=== PATIENT | male | born 1970 ===

== ENCOUNTER 2022-01-26 12:34 | Emergency (ER) | payer SELFPAY ==
[2022-01-26 13:06] VITALS: TEMP 98.1; BMI 25.8
[2022-01-26] MEDS ORDERED: MIDAZOLAM HCL 2 MG/2 ML SINGLE DOSE VIAL ONE ×2 (13:28→14:23)
[2022-01-26] MEDS ORDERED: KETAMINE HCL 200 MG/20 ML VIAL ONE (13:28)
[2022-01-26] MEDS ORDERED: PROPOFOL 1,000,000 MCG/100 ML VIAL ONE (13:28)
[2022-01-26] MEDS ORDERED: LIDOCAINE HCL 4% TOPICAL SOLN (50 ML/BOTTLE) TP ONE (13:32)
[2022-01-26] MEDS ORDERED: DEXAMETHASONE SOD PHOSPHATE 10 MG/1 ML VIAL ONE (13:35)
[2022-01-26] MEDS ORDERED: MIDAZOLAM HCL 2 MG/2 ML SINGLE DOSE VIAL IVPUSH ONE ×3 (13:42→14:23)
[2022-01-26] MEDS ORDERED: PIPERACILLIN/TAZOB 4.5 GM 4.5 GM/100 ML BAG IVPB ONE (13:42)
[2022-01-26] MEDS ORDERED: VANCOMYCIN/WATER FOR INJ (PEG) 1,000 MG/200 ML BAG IVPB ONE (13:42)
[2022-01-26] MEDS ORDERED: KETAMINE HCL 200 MG/20 ML VIAL IVPUSH ONE (13:42)
[2022-01-26] MEDS ORDERED: CLINDAMYCIN 600MG PREMIX IVPB 600 MG/50 ML BAG IVPB ONE (13:43)
[2022-01-26] MEDS ORDERED: VANCOMYCIN 1 GM/200 ML PREMIX BAG IVPB ONE (13:43)
[2022-01-26] MEDS ORDERED: PIPERACILLIN/TAZOB 4.5 GM 4.5 GM in DEXTROSE 5%-WATER 100 ML IVPB ONE (13:43)
[2022-01-26 14:08] LABS: VENOUS BASE EXCESS 0.8 mmol/L (-2-2); VENOUS O2 SATURATION 82.5 % (70-80); VENOUS PCO2 47.1 mmHg (38-52); VENOUS PH 7.372 (7.310-7.410)
[2022-01-26 14:10] LABS: HEMOGLOBIN 16.8 GM/dL (11.7-16.9); MCH 32.8 pg (25.7-33.7); MCHC 33.7 g/dl (32.0-35.9); MEAN CELL VOLUME 97.5 fl (80-96); MEAN PLT VOLUME 11.3 fl (7.5-11.1); PLATELET COUNT 177 10^3/uL (134-434); RBC 5.13 M/mm3 (4.00-5.60); RDW 13.8 % (11.9-15.9); WHITE BLOOD COUNT 21.3 K/mm3 (4.0-10.0)
[2022-01-26 14:16] LABS: INR 1.36 (0.83-1.09); PROTHROMBIN TIME (PATIENT) 15.7 SEC (9.7-13.0)
[2022-01-26 14:19] LABS: ACTIVATED PTT 30.4 SECONDS (25.2-36.5)
[2022-01-26] MEDS ORDERED: DEXAMETHASONE SOD PHOSPHATE 10 MG/1 ML VIAL IVPUSH ONE (14:23)
[2022-01-26] MEDS ORDERED: GLYCOPYRROLATE 1 MG/5 ML VIAL IVPB ONE (14:25)
[2022-01-26] MEDS ORDERED: PROPOFOL 1,000,000 MCG/100 ML VIAL IVPB SCH (14:30)
[2022-01-26 14:42] VITALS: RESP 24
[2022-01-26 14:44] LABS: CALCIUM 8.8 mg/dL (8.5-10.1)
[2022-01-26 14:45] LABS: ALBUMIN 2.4 g/dl (3.4-5.0); BLOOD UREA NITROGEN 54.7 mg/dL (7-18)
[2022-01-26 14:48] LABS: CREATININE 1.2 mg/dL (0.55-1.3)
[2022-01-26 14:49] VITALS: BP 146/95; PULSE 114
[2022-01-26 14:50] LABS: BILIRUBIN,TOTAL 2.3 mg/dL (0.2-1); LACTIC ACID 2.2 mmol/L (0.4-2.0); TOT PROT 6.8 g/dl (6.4-8.2)
[2022-01-26] MEDS ORDERED: hydrALAZINE HCL 20 MG/ML VIAL IVPUSH ONE (15:00)
[2022-01-26] MEDS ORDERED: LIDOCAINE HCL 4% TOPICAL SOLN (50 ML/BOTTLE) MM ONE (15:00)
[2022-01-26] MEDS ORDERED: hydrALAZINE HCL 20 MG/ML VIAL ONE (15:01)
[2022-01-26 15:22] LABS: ANISOCYTOSIS 0; HELMET CELLS 0; HOWELL-JOLLY BODIES 0; MACROCYTOSIS 0; OVALOCYTE 0; ROULEAU 0; SICKELED CELLS 0; TARGET CELLS 0; TEAR DROP CELLS 0; TOXIC GRANULATION 0
== END 2022-01-26 15:01 | disposition short-term general hospital (02) ==
LOC: JER 12:34
PROC: 3E03329 Introduction of Other Anti-infective into Peripheral Vein, Percutaneous Approach (ICD-10-PCS; principal; 2022-01-26)
PROC: 3E0333Z Introduction of Anti-inflammatory into Peripheral Vein, Percutaneous Approach (ICD-10-PCS; 2022-01-26)
PROC: 3E033NZ Introduction of Analgesics, Hypnotics, Sedatives into Peripheral Vein, Percutaneous Approach (ICD-10-PCS; 2022-01-26)
PROC: 3E033GC Introduction of Other Therapeutic Substance into Peripheral Vein, Percutaneous Approach (ICD-10-PCS; 2022-01-26)
PROC: 3E033GC Introduction of Other Therapeutic Substance into Peripheral Vein, Percutaneous Approach (ICD-10-PCS; 2022-01-26)
PROC: 3E03329 Introduction of Other Anti-infective into Peripheral Vein, Percutaneous Approach (ICD-10-PCS; 2022-01-26)
PROC: 3E033GC Introduction of Other Therapeutic Substance into Peripheral Vein, Percutaneous Approach (ICD-10-PCS; 2022-01-26)
PROC: 3E03329 Introduction of Other Anti-infective into Peripheral Vein, Percutaneous Approach (ICD-10-PCS; 2022-01-26)
DX: K12.2 Cellulitis and abscess of mouth (principal); J05.10 Acute epiglottitis without obstruction
CPT/HCPCS: 36415; 71045-TC-FY; 80053; 82803; 83605; 85025; 85610; 85730; 86850; 86900; 86901; 87040; 87070; 87205; 87651; 93005; 93010; 99285-25; C9803-CS; J1100; U0003; U0005